=== PATIENT | male | born 1980 | race Caucasian/White ===

== ENCOUNTER 2016-05-22 10:01 | Emergency (ER) ==
[2016-05-22 10:09] VITALS: BP 170/105
[2016-05-22] MEDS ORDERED: TORADOL IM ONE (10:53)
[2016-05-22] MEDS ORDERED: NORFLEX IM ONE (10:53)
--- NOTE | 2016-05-22 11:13 | PROVIDER DOCUMENTATION ---
HPI-Musculoskeletal Pain/Inj - GENERAL Chief Complaint: Back Pain Stated Complaint: BACK PAIN Time Seen by Provider: 05/22/16 10:33 Source: patient - HX OF PRESENT ILLNESS-MUSKULOSKELTAL Nature of Presenting Problem: 36 y/o WM c/o bilat back pain x 3 weeks. Pt states R>L and radiates down R lateral thigh. Reports no new activity, heavy lifting, injury, trauma. Denies bowel/bladder dysfunction, numbness/tingling, saddle anesthesia. States better after walking around. Not better with ice or heat. Review of Systems - Adult - REVIEW OF SYSTEMS - ADULT Constitutional: reports: no symptoms reported. denies: chills, fever Eyes: reports: no symptoms reported. denies: blurred vision, double vision Ears, Nose, Mouth & Throat: reports: no symptoms reported. denies: ear pain, nose pain Cardiovascular: reports: no symptoms reported. denies: chest pain, palpitations Respiratory: reports: no symptoms reported. denies: dyspnea on exertion, shortness of breath Gastrointestinal: reports: no symptoms reported. denies: nausea, vomiting Genitourinary: reports: no symptoms reported. denies: dysuria, frequency Musculoskeletal: reports: see HPI, back pain. denies: joint pain, joint swelling Integumentary: reports: no symptoms reported. denies: nail changes, rash Neurological: reports: no symptoms reported. denies: numbness, paresthesia Psychiatric: reports: no symptoms reported Endocrine: reports: no symptoms reported. denies: cold intolerance, heat intolerance Hematologic/Lymphatic: reports: no symptoms reported. denies: easy bruising, prolonged bleeding Allergic/Immunologic: reports: no symptoms reported All Other Systems: Reviewed and Negative Past History - Adult - PAST MEDICAL HISTORY-ADULT Review of Records: reports: Nursing Assessment Review, Medications Reviewed Major Childhood Illnesses: reports: denies history Cardiovascular: reports: HTN Musculoskeletal: reports: other (GOUT) Additional History: gout - PRIOR SURGERIES/PROCEDURES Surgical/Procedure History: reports: none - IMMUNIZATION STATUS Childhood Immunizations: See Nurse Assessment Flu Vaccine: See Nurse Assessment - SOCIAL HISTORY Smoking: denies Living Situation: family Physical Exam-Injury Related - Physical Exam-Injury Related Initial Vital Signs Reviewed: Yes General Appearance: alert, mild distress Eyes: pink conjunctivae Head, Ears, Nose, Mouth & Throat: normocephalic/atraumatic Neck: normal inspection Respiratory: no respiratory distress Cardiovascular: normal peripheral pulses, regular rate, rhythm Peripheral Pulses: dorsalis-pedis (R): 1+, dorsalis-pedis (L): 1+ Back Exam: normal inspection, no vertebral tenderness, other (TTP R lumbar back) Extremity: normal range of motion, normal gait. negative: abnormal NV exam, pulse deficit, pedal edema Integumentary: normal color, warm/dry, blanching Neurologic: negative: aphasia, motor weakness (bilat LE), sensory deficit ( bilat LE) Psych/Mental Status: normal mood/affect, normal thought content, normal thought process, oriented x 3 Progress - XRAY 1 XRAY Study: Lumbar Spine XRAY Interpretation: No fx, subluxation Departure - Departure Time of Disposition Order: 12:06 DIAGNOSIS: Back pain Qualifiers: Back pain location: low back pain Chronicity: acute Back pain laterality: bilateral Sciatica presence: with sciatica Sciatica laterality: sciatica of right side Qualified Code(s): M54.41 - Lumbago with sciatica, right side Disposition: HOME 01 Certified Medical Emergency: Emergent Condition: Stable Additional Instructions: Take medications as directed. Ice or heat as needed. Follow up with specialist for further management. Limit activity, heavy lifting x 10 days. ED Follow Up Instructions: You have been treated by a care provider in the Emergency Department. These instructions are being provided to you so you can have an understanding of how to care for yourself upon discharge. Upon discharge from the Emergency Department, you are responsible for making arrangements for follow-up care by a physician of your choice. Take all prescribed medications as directed. Return to the Emergency Department immediately for any new or worsening symptoms. You may call the Physician Referral phone number at [phone] to obtain a list of Physicians who are taking new patients. Prescriptions: Ibuprofen [Motrin] 800 mg PO Q8H PRN PRN #30 tablet PRN Reason: inflammation Famotidine [Pepcid] 20 mg PO DAILY #20 tablet Methocarbamol [Robaxin] 500 mg PO BID #30 tablet Referrals: None,PCP [Primary Care Provider] - Bogdan Ridley MD [STAFF PHYSICIAN] - Attestation - Physician/ JAY Attestation Patient care was provided by Advanced Practice Provider:: Yes Advanced Practice Provider:: Bonnie De Jesus Advanced Practice Provider documentation review:: The Mid-level provider documentation, treatment plan and medical decision making was reviewed by the physician who agrees with all treatment and medical decision making by the MLP.
--- NOTE | 2016-05-22 14:48 | Diag Imaging Result Document ---
PROCEDURE NAME: LUMBAR SPINE - 05/22/2016 LUMBOSACRAL SPINE SERIES WITH OBLIQUES, 6 VIEWS: FINDINGS: The pedicles are intact. The disk spaces are well maintained. There is no evidence of acute fracture or subluxation. IMPRESSION: No acute disease.
== END 2016-05-22 12:45 | disposition home or self-care (01) ==
LOC: P.ED 10:01
DX: M54.41 Lumbago with sciatica, right side (principal); M79.651 Pain in right thigh; I10 Essential (primary) hypertension
CPT/HCPCS: 72110; 96372; J1885; J2360